=== PATIENT | female | born 1930 | race Caucasian/White ===

== ENCOUNTER 2017-02-23 01:50 | Inpatient (IN) ==
[2017-02-23] MEDS ORDERED: ONDANSETRON 4 MG/2 ML VIAL IV PRN (04:36)
[2017-02-23 04:51] LABS: Basophils # 0.1 10*3/uL (0.0-0.2); Basophils % 0.6 % (0.0-0.8); Eosinophils # 0.2 10*3/uL (0.0-0.87); Eosinophils % 2.8 % (0.00-10.9); Hematocrit 34.8 VOL% (35.7-47.0); Immature Granulocytes % 0.3 %; Immature Granulocytes Absolute 0.02 #; Lymphocytes # 2.2 10*3/uL (1.4-4.0); Lymphocytes % 27.8 % (21.3-54.2); Mean Corpuscular HGB Conc 31.6 GM/DL (32-36); Mean Corpuscular Hemoglobin 30 PG (27-34); Mean Corpuscular Volume 93.5 FL (87-102); Mean Platelet Volume 9.7 FL (9.6-12.0); Monocytes # 0.7 10*3/uL (0.11-0.8); Monocytes % 9.3 % (1.7-12.7); Neutrophils # 4.7 10*3/uL (1.4-7.4); Neutrophils % 59.2 % (38.7-73.9); Platelet Count 143 T/CUMM (130-400); Red Blood Count 3.72 MC/CUMM (3.8-5.5); Red Cell Distribution Width 13.2 % (9.3-17.3)
[2017-02-23] MEDS ORDERED: NITROGLYCERIN SL 0.4 MG TABLET SL PRN (06:38)
[2017-02-23] MEDS ORDERED: GLUCAGON 1 MG VIAL IM PRN (06:40)
[2017-02-23] MEDS ORDERED: DEXTROSE 50% 25 GM/50 ML VIAL IV PRN (06:40)
[2017-02-23] MEDS ORDERED: METOPROLOL TARTRATE 25 MG TABLET ONE (08:46)
[2017-02-23] MEDS ORDERED: PANTOPRAZOLE 40 MG TABLET PO ONE (08:46)
[2017-02-23] MEDS: METOPROLOL TARTRATE 25 MG TABLET PO SCH ×2 (08:48→21:20)
[2017-02-23] MEDS: DILTIAZEM CD 240 MG CAPSULE PO SCH (08:49)
[2017-02-23] MEDS: LEVOTHYROXINE 137 MCG TABLET PO SCH (08:51)
[2017-02-23] MEDS: MULTIVITAMIN (OCUVITE) TABLET PO SCH (08:51)
[2017-02-23] MEDS: ISOSORBIDE MONONITRATE 30 MG TABLET PO SCH (08:52)
[2017-02-23] MEDS: DOFETILIDE 250 MCG CAPSULE PO SCH ×2 (08:56→21:19)
[2017-02-23] MEDS ORDERED: PANTOPRAZOLE 40 MG VIAL IV ONE (08:57)
[2017-02-23] MEDS: INSULIN LISPRO 100 UNIT/ML SUBCUT SCH ×4 (08:59→21:22)
[2017-02-23] MEDS: PANTOPRAZOLE 40 MG VIAL IV SCH ×2 (09:00→21:22)
[2017-02-23 11:51] LABS: Hematocrit 34.2 VOL% (35.7-47.0); Hemoglobin 10.9 GM/DL (12.0-16.0)
[2017-02-23] MEDS: SODIUM CHLORIDE 0.9% 1,000 ML IV SCH ×2 (12:14→22:02)
[2017-02-23 17:34] LABS: Hematocrit 33.3 VOL% (35.7-47.0); Hemoglobin 10.4 GM/DL (12.0-16.0)
[2017-02-23] MEDS: MIRTAZAPINE 30 MG TABLET PO SCH (21:20)
[2017-02-23] MEDS: INSULIN GLARGINE 100 UNIT/ML SUBCUT SCH (21:21)
[2017-02-23 23:34] LABS: Hematocrit 33.5 VOL% (35.7-47.0); Hemoglobin 10.5 GM/DL (12.0-16.0)
[2017-02-24] MEDS: SODIUM CHLORIDE 0.9% 1,000 ML IV SCH ×5 (01:49→22:42)
[2017-02-24] MEDS: LEVOTHYROXINE 137 MCG TABLET PO SCH (06:12)
[2017-02-24] MEDS: DILTIAZEM CD 240 MG CAPSULE PO SCH (09:03)
[2017-02-24] MEDS: METOPROLOL TARTRATE 25 MG TABLET PO SCH ×2 (09:03→20:58)
[2017-02-24] MEDS: ISOSORBIDE MONONITRATE 30 MG TABLET PO SCH (09:03)
[2017-02-24] MEDS: MULTIVITAMIN (OCUVITE) TABLET PO SCH (09:04)
[2017-02-24] MEDS: PANTOPRAZOLE 40 MG VIAL IV SCH ×2 (09:05→21:02)
[2017-02-24] MEDS: DOFETILIDE 250 MCG CAPSULE PO SCH ×2 (09:09→21:00)
[2017-02-24] MEDS: INSULIN LISPRO 100 UNIT/ML SUBCUT SCH ×4 (09:09→20:59)
[2017-02-24 10:22] LABS: Hematocrit 36.3 VOL% (35.7-47.0); Hemoglobin 11.3 GM/DL (12.0-16.0)
[2017-02-24] MEDS ORDERED: FUROSEMIDE 40 MG/4 ML VIAL IV ONE (19:10)
[2017-02-24] MEDS ORDERED: ALBUTEROL/IPRATROPIUM 3 ML NEB RESP TX PRN (19:11)
[2017-02-24 19:24] LABS: Basophils # 0.1 10*3/uL (0.0-0.2); Basophils % 0.7 % (0.0-0.8); Eosinophils # 0.3 10*3/uL (0.0-0.87); Eosinophils % 4.4 % (0.00-10.9); Hematocrit 34.2 VOL% (35.7-47.0); Hemoglobin 10.8 GM/DL (12.0-16.0); Immature Granulocytes % 0.3 %; Immature Granulocytes Absolute 0.02 #; Lymphocytes # 2.1 10*3/uL (1.4-4.0); Lymphocytes % 29.5 % (21.3-54.2); Mean Corpuscular HGB Conc 31.6 GM/DL (32-36); Mean Corpuscular Hemoglobin 30 PG (27-34); Mean Corpuscular Volume 95.8 FL (87-102); Mean Platelet Volume 9.9 FL (9.6-12.0); Monocytes # 0.6 10*3/uL (0.11-0.8); Monocytes % 8.7 % (1.7-12.7); Neutrophils # 4.1 10*3/uL (1.4-7.4); Neutrophils % 56.4 % (38.7-73.9); Platelet Count 146 T/CUMM (130-400); Red Blood Count 3.57 MC/CUMM (3.8-5.5); Red Cell Distribution Width 13.3 % (9.3-17.3); White Blood Count 7.3 T/CUMM (4-12)
[2017-02-24 20:03] LABS: Alanine Aminotransferase 30 U/L (13-56); Albumin 2.9 G/DL (3.4-5.0); Alkaline Phosphatase 57 U/L (45-117); Aspartate Amino Transferase 26 U/L (0-37); Bilirubin,Total < 0.39 MG/DL (0.2-1.0); Blood Urea Nitrogen 14 MG/DL (7-18); Calcium 7.2 MG/DL (8.5-10.1); Glucose 131 MG/DL (74-106); Osmolality,Calculated 288.8 MOS/KG (273-304); Sodium 144 MMOL/L (136-145); Total Protein 6.1 G/DL (6.4-8.3)
[2017-02-24] MEDS: MIRTAZAPINE 30 MG TABLET PO SCH (20:58)
[2017-02-24] MEDS: INSULIN GLARGINE 100 UNIT/ML SUBCUT SCH (20:59)
[2017-02-25] MEDS: LEVOTHYROXINE 137 MCG TABLET PO SCH (06:00)
[2017-02-25 06:52] LABS: Magnesium 1.7 MG/DL (1.8-2.4)
[2017-02-25] MEDS: INSULIN LISPRO 100 UNIT/ML SUBCUT SCH ×2 (07:24→11:47)
[2017-02-25] MEDS: ISOSORBIDE MONONITRATE 30 MG TABLET PO SCH (09:35)
[2017-02-25] MEDS: MULTIVITAMIN (OCUVITE) TABLET PO SCH (09:35)
[2017-02-25] MEDS: DILTIAZEM CD 240 MG CAPSULE PO SCH (09:35)
[2017-02-25] MEDS: METOPROLOL TARTRATE 25 MG TABLET PO SCH (09:35)
[2017-02-25] MEDS: PANTOPRAZOLE 40 MG VIAL IV SCH (09:36)
[2017-02-25] MEDS: DOFETILIDE 250 MCG CAPSULE PO SCH (09:40)
[2017-02-25 11:16] VITALS: BP 90/50
== END 2017-02-25 16:05 | disposition home or self-care (01) | DRG 377 ==
LOC: EDBD → EDUNIT# → N.ED 01:50 → N.EDINP 04:36 → SUPCPDRO 04:38 → N.EDINP 16:45 → N.3E 17:04